=== PATIENT | female | born 1940 | race Hispanic/Latino ===

== ENCOUNTER → 2023-12-03 | Outpatient (CLI) | payer OTHER, MEDICARE ==
[~2023-12-03] MED LIST: IOHEXOL 350 MG/ML 100ML INFUS..BTL IV ONE; METOPROLOL TARTRATE 1 MG/ML 5ML VIAL IV ONE
== END | disposition home or self-care (01) ==
LOC: RAH 09:56
PROVIDERS: ATTEND Internal Medicine Cardiovascular Disease
DX: I35.0 Nonrheumatic aortic (valve) stenosis (principal); I25.10 Atherosclerotic heart disease of native coronary artery without angina pectoris; I42.9 Cardiomyopathy, unspecified; I49.9 Cardiac arrhythmia, unspecified; M41.86 Other forms of scoliosis, lumbar region; N28.89 Other specified disorders of kidney and ureter
CPT/HCPCS: 74174; 75574; J3490; Q9967